=== PATIENT | female | born 1960 | race Hispanic/Latino ===

== ENCOUNTER 2016-11-01 14:00 | Observation (INO) | payer MEDICAID ==
[2016-11-01 14:02] VITALS: BMI 22.3
[2016-11-01] MEDS ORDERED: Levalbuterol 1.25 MG/3 ML Inhal Soln UD IH STA ×2 (14:27→17:19)
[2016-11-01] MEDS ORDERED: Ipratropium 0.02% Inhal Soln (0.5 mg/2.5 ml) UD IH STA (14:27)
[2016-11-01] MEDS ORDERED: guaiFENesin 200 mg/10 ml Syrup UD PO STA ×2 (14:27→18:55)
--- NOTE | 2016-11-01 14:30 | ED PDOC ---
Arrival/HPI - General Chief Complaint: Shortness Of Breath Time Seen by Provider: 11/01/16 14:01 Historian: Patient - History of Present Illness Narrative History of Present Illness (Text): 11/01/16 14:20 A 56 year old female, whose past medical history includes glaucoma and depression, presents to the emergency department complaining of cough and shortness of breath for 5 days. Patient reports experiencing "tightening" cough. She tried visiting her PMD for symptoms few days ago, but he was unavailable at the time. Patient notes experiencing fever at 101, chest tightness, abdominal pain (only associated with cough), and rhinorrhea. Patient denies of any chills, nausea, vomiting, diarrhea, constipation, congestion, urinary output changes, or any other complaints. Also, patient mentions having no history of asthma, CAD, or hypertension. PMD: Dr. Kraus Time/Duration: > week (5 days ago) Symptom Onset: Gradual Symptom Course: Unchanged Past Medical History - Provider Review Nursing Documentation Reviewed: Yes - Tetanus Immunization Tetanus Immunization: Unknown - Cardiac Hx Cardiac Disorders: No - Pulmonary Hx Respiratory Disorders: No - Neurological Hx Neurological Disorder: No - HEENT Hx HEENT Disorder: Yes Hx Cataracts: Yes Hx Glaucoma: Yes - Renal Hx Renal Disorder: No - Endocrine/Metabolic Hx Endocrine Disorders: No - Hematological/Oncological Hx Blood Disorders: No - Integumentary Hx Dermatological Disorder: No - Musculoskeletal/Rheumatological Hx Musculoskeletal Disorders: No - Gastrointestinal Hx Gastrointestinal Disorders: No - Genitourinary/Gynecological Hx Genitourinary Disorders: No - Psychiatric Hx Psychophysiologic Disorder: No Hx Substance Use: No - Surgical History Hx Eye Surgery: Yes (glaucoma/cataract) - Anesthesia Hx Anesthesia: Yes Hx Anesthesia Reactions: No Hx Malignant Hyperthermia: No - Suicidal Assessment Feels Threatened In Home Enviroment: No Family/Social History - Physician Review Nursing Documentation Reviewed: Yes Family/Social History: No Known Family HX Smoking Status: Heavy Smoker > 10 Cigarettes Daily Hx Alcohol Use: No Hx Substance Use: No Allergies/Home Meds Allergies/Adverse Reactions: Allergies No Known Allergies Allergy (Verified 08/04/14 16:12) Review of Systems - Physician Review All systems were reviewed & negative as marked: Yes - Review of Systems Constitutional: Fevers (at 101 degrees). absent: Night Sweats ENT: Rhinorrhea. absent: Sinus Congestion Respiratory: SOB, Cough Cardiovascular: Chest Pain (patient describes chest discomfort as "chest tightness" with cough) Gastrointestinal: Abdominal Pain (associated with cough). absent: Constipation , Diarrhea, Nausea, Vomiting Physical Exam Vital Signs Reviewed: Yes Vital Signs Temp Pulse Resp BP Pulse Ox 11/01/16 20:10 97 11/01/16 18:00 98.4 F 72 18 113/76 97 11/01/16 16:00 98.6 F 68 18 125/65 100 11/01/16 14:13 14 11/01/16 14:09 98 F 85 16 146/85 96 Blood Pressure: Normal Pulse: Regular Respiratory Rate: Normal Appearance: Positive for: Well-Appearing Pain Distress: None Mental Status: Positive for: Alert and Oriented X 3 - Systems Exam Head: Present: Atraumatic, Normocephalic Pupils: Present: PERRL Conjunctiva: Present: Normal Mouth: Present: Moist Mucous Membranes Pharnyx: Present: Normal. No: ERYTHEMA, EXUDATE Neck: Present: Normal Range of Motion Respiratory/Chest: Present: Wheezes (diffused bilateral wheezing) Cardiovascular: Present: Regular Rate and Rhythm, Normal S1, S2. No: Murmurs Abdomen: Present: Normal Bowel Sounds. No: Tenderness, Distention, Peritoneal Signs Back: Present: Normal Inspection Upper Extremity: Present: Normal Inspection. No: Cyanosis, Edema Lower Extremity: Present: Normal Inspection. No: Edema Neurological: Present: GCS=15, CN II-XII Intact, Speech Normal Skin: Present: Warm, Dry, Normal Color. No: Rashes Psychiatric: Present: Alert, Oriented x 3, Normal Insight, Normal Concentration Medical Decision Making ED Course and Treatment: 11/01/16 14:25 Impression: 56 year old female with cough and shortness of breath. Physical exam shows diffused bilateral wheezing. Differential Diagnosis included but are not limited to: Bronchitis vs pneumonia vs URI vs less likely ACS Plan: -- EKG -- Chest X-ray -- Labs -- Robitussin -- Atrovent -- Xopenex -- Solu-Medrol -- Reassess and disposition Prior Visits: Notes and results from previous visits were reviewed. On 08/04/2014 patient came in complaining of dry cough and shortness of breath upon inhalation. Patient was discharged home. Progress Notes: EKG: Ordered, reviewed, and independently interpreted the EKG. Rate : 76 BPM Rhythm : NSR Interpretation : No ST-segment elevations or depressions, no T-wave inversions, normal intervals. Comparison : No previous EKG for comparison. 11/01/2016 15:01 Chest X-ray IMPRESSION: No active disease. Dictator : Nu Wseley V. 11/01/16 20:30 Patient with noted history of cough with wheezing significant on exam - she was given steroids and nebs in the ED with full resolution of wheezing and symptoms as noted. CXR, EKG, and labs were negative - ok for d/c and f/u pmd. - Lab Interpretations Lab Results: 11/01/16 15:00 11/01/16 15:00 Lab Results 11/01/16 15:00: Sodium 140, Potassium 4.5, Chloride 102, Carbon Dioxide 29, Anion Gap 14, BUN 11, Creatinine 0.6, Est GFR ( Amer) > 60, Est GFR (Non- Af Amer) > 60, Random Glucose 101, Calcium 9.4, Magnesium 1.9, Total Bilirubin 0.5, AST 39 H, ALT 58 H, Alkaline Phosphatase 115, Lactate Dehydrogenase 541, Total Creatine Kinase 375 H, CK-MB (CK-2) 1.1, CK-MB (CK-2) % Cancelled, Troponin I < 0.01, NT-Pro-B Natriuret Pep 117, Total Protein 7.3, Albumin 4.3, Globulin 3.0, Albumin/Globulin Ratio 1.4, Lipase 110 11/01/16 15:00: PT 12.4 H, INR 1.15 H, APTT 25.7 11/01/16 15:00: WBC 7.4, RBC 4.20, Hgb 13.2, Hct 37.9, MCV 90.2, MCH 31.4, MCHC 34.8, RDW 13.0, Plt Count 299, MPV 9.4, Gran % 62.0, Lymph % (Auto) 29.4, [place] % (Auto) 6.2 H, Eos % (Auto) 1.9, Baso % (Auto) 0.5, Gran # 4.61, Lymph # 2.2, [place] # 0.5, Eos # 0.1, Baso # 0.04 I have reviewed the lab results: Yes - RAD Interpretation Radiology Orders: 11/01/16 14:26 CHEST PORTABLE [RAD] Stat - Medication Orders Current Medication Orders: Discontinued Medications Guaifenesin (Robitussin) 400 mg PO ONCE STA Stop: 11/01/16 14:28 Last Admin: 11/01/16 15:18 Dose: 400 mg Guaifenesin (Robitussin) 400 mg PO ONCE STA Stop: 11/01/16 18:56 Last Admin: 11/01/16 19:06 Dose: 400 mg Levofloxacin/Dextrose (Levaquin 750mg) 750 mg in 150 mls @ 100 mls/hr IVPB STAT STA Stop: 11/01/16 20:24 Last Admin: 11/01/16 19:24 Dose: 100 mls/hr eMAR Start Stop Document 11/01/16 19:24 AB (Rec: 11/01/16 19:24 AB [id number]) Intravenous Solution Start Date 11/01/16 Start Time 19:24 End Date 11/01/16 Ipratropium Megargel (Atrovent) 0.5 mg IH STAT STA Stop: 11/01/16 14:28 Last Admin: 11/01/16 15:17 Dose: 0.5 mg Levalbuterol HCl (Xopenex) 1.25 mg IH STAT STA Stop: 11/01/16 14:28 Last Admin: 11/01/16 15:18 Dose: 1.25 mg Levalbuterol HCl (Xopenex) 1.25 mg IH STAT STA Stop: 11/01/16 17:20 Last Admin: 11/01/16 17:27 Dose: 1.25 mg Levalbuterol HCl (Xopenex) 0.63 mg IH ONCE STA Stop: 11/01/16 18:56 Last Admin: 11/01/16 19:08 Dose: 0.63 mg Methylprednisolone (Solu-Medrol) 125 mg IVP STAT STA Stop: 11/01/16 14:28 Last Admin: 11/01/16 15:18 Dose: 125 mg IVP Administration Document 11/01/16 15:18 AB (Rec: 11/01/16 15:18 AB [id number]) Charges for Administration # of IVP Administrations 1 ED OBSERVATION Discharge: Yes Date of observation admission: 11/01/16 Time of observation admission: 14:20 - Observation admission statement Patient is being placed in observation because:: Patient with wheezing and sob and will need evaluation and reassessment to treatment. - Goals of Observation Goals of observation are:: To improve symptoms and determine disposition. - Progress Note Progress Note: 11/01/16 15:20 Patient has received nebs and steroids and has persistent wheezing but comfortable appearing. CXR read as negative. 11/01/16 16:00 Patient is comfortable appearing but still with persisent wheezing. 11/01/16 17:15 Patient with persistent wheezing - will give additional neb. Labs and CXR are unremarkable as noted. 11/01/16 18:00 Patient with O2 sat down to 91% on room air and same with ambulation. Wheezing is much improved but still present. 11/01/16 18:50 Still hypoxic without improvement. Will give antibiotic for bronchitis and give more nebs and additional Robitussin. 11/01/16 20:15 Patient is much improved with full resolution of symptoms with O2 sat up to 96% on room air and feels much better. Wheezing has resolved. Ok for d/c. - Scribe Statement The provider has reviewed the documentation as recorded by the Lizeth Goyal Provider Scribe Attestation: All medical record entries made by the Scribe were at my direction and personally dictated by me. I have reviewed the chart and agree that the record accurately reflects my personal performance of the history, physical exam, medical decision making, and the department course for this patient. I have also personally directed, reviewed, and agree with the discharge instructions and disposition. Disposition/Present on Arrival - Present on Arrival Any Indicators Present on Arrival: No History of DVT/PE: No History of Uncontrolled Diabetes: No Urinary Catheter: No History of Decub. Ulcer: No History Surgical Site Infection Following: None - Disposition Have Diagnosis and Disposition been Completed?: Yes Diagnosis: Bronchitis Disposition: HOME/ ROUTINE Disposition Time: 14:20 Patient Plan: Discharge Patient Problems: Current Active Problems Problem Status Onset Bronchitis Acute Condition: GOOD Discharge Instructions (ExitCare): Acute Bronchitis (ED) Additional Instructions: Stop smoking. Take the medications as prescribed. Follow up with Dr. Kraus in 1-2 days. Return to the emergency department if any new concerning symptoms. Prescriptions: Albuterol HFA [Ventolin HFA 90 mcg/actuation (8 g)] 2 puff IH Q4H #1 inhaler Levofloxacin [Levaquin] 1 tab PO DAILY #9 tablet predniSONE [Prednisone] 2 tab PO DAILY #10 tab Referrals: Charlie Kraus MD [Primary Care Provider] - Follow up with primary Forms: [employer] (Occitan)
--- NOTE | 2016-11-01 15:03 | RAD ---
HISTORY: sob COMPARISON: No prior. FINDINGS: LUNGS: No active pulmonary disease. PLEURA: No significant pleural effusion identified, no pneumothorax apparent. CARDIOVASCULAR: Normal. OSSEOUS STRUCTURES: No significant abnormalities. VISUALIZED UPPER ABDOMEN: Normal. OTHER FINDINGS: None. IMPRESSION: No active disease.
[2016-11-01 15:18] LABS: BASO # 0.04 K/mm3 (0.0-2.0); BASO % 0.5 % (0.0-3.0); EOS # 0.1 (0.0-0.7); EOS % 1.9 % (1.5-5.0); GRAN # 4.61 (1.4-6.5); HEMATOCRIT 37.9 % (36.0-48.0); LYMPH # 2.2 (1.2-3.4); LYMPH % 29.4 % (22.0-35.0); MEAN CELL VOLUME 90.2 fl (80.0-105.0); MEAN CORPUSCULAR HEMOGLOBIN 31.4 pg (25.0-35.0); MEAN CORPUSCULAR HGB CONC 34.8 g/dl (31.0-37.0); MEAN PLATELET VOLUME 9.4 fl (7.0-11.0); MONO # 0.5 (0.1-0.6); MONO % 6.2 % (1.0-6.0); WHITE BLOOD COUNT 7.4 10^3/ul (4.5-11.0)
[2016-11-01 15:29] LABS: ALB/GLOB RATIO 1.4 (1.1-1.8); ALKALINE PHOSPHATASE 115 U/L (38-126); ALT/SGPT 58 U/L (7-56); AST/SGOT 39 U/L (14-36); BILIRUBIN,TOTAL 0.5 mg/dL (0.2-1.3); BLOOD UREA NITROGEN 11 mg/dL (7-21); CALCIUM 9.4 mg/dL (8.4-10.5); CARBON DIOXIDE 29 mmol/L (21-33); CHLORIDE 102 mmol/L (98-107); GFR AFRICAN-AMERICAN > 60; GLUCOSE,RANDOM 101 mg/dL (70-110); INR 1.15 (0.93-1.08); LIPASE 110 U/L (23-300); MAGNESIUM 1.9 mg/dL (1.7-2.2); PARTIAL THROMBOPLASTIN TIME 25.7 Seconds (23.7-30.8); POTASSIUM 4.5 mmol/L (3.6-5.0); SODIUM 140 mmol/L (132-148); TOTAL PROTEIN 7.3 g/dL (5.8-8.3)
[2016-11-01 15:43] LABS: TROPONIN I < 0.01 ng/mL
[2016-11-01] MEDS ORDERED: Levalbuterol 0.63 MG/3 ML Inhal Soln UD IH STA (18:55)
[2016-11-01] MEDS ORDERED: levoFLOXacin 750 mg in D5W 750 MG/150 ML BAG IVPB STA (18:55)
[2016-11-01 19:29] VITALS: TEMP 98.4
[2016-11-01 20:41] VITALS: BP 128/72; PULSE 84; RESP 20; O2SAT 96
--- NOTE | 2016-11-01 23:01 | CARD ---
APPROVED REPORT EKG Measurement Heart [id number] <Conclusion> Normal sinus rhythm Normal ECG
== END 2016-11-01 20:45 | disposition home or self-care (01) ==
LOC: ED 14:00 → EROBSV 14:20 → ED 20:40
PROVIDERS: ADMIT Emergency Medicine; ATTEND Emergency Medicine
DX: J40 Bronchitis, not specified as acute or chronic (principal); F17.210 Nicotine dependence, cigarettes, uncomplicated
CPT/HCPCS: 71010; 80053; 82550; 82553; 83615; 83690; 83735; 83880; 84484; 85025; 85610; 85730; 93005; 96374; 99285; G0378; J2930

== ENCOUNTER 2018-01-04 23:11 | Emergency (ER) | payer MEDICAID ==
[2018-01-04 23:16] VITALS: BMI 23.0
[2018-01-04 23:24] VITALS: TEMP 97.9
--- NOTE | 2018-01-04 23:37 | ED PDOC ---
Arrival/HPI - General Time Seen by Provider: 01/04/18 23:20 Historian: Patient - History of Present Illness Narrative History of Present Illness (Text): 01/04/18 23:20 A 57 year old female, whose past medical history includes hyperlipidemia, glaucoma and depression, presents to the emergency department complaining of mid-sternal chest heaviness starting 30 minutes ago. Patient reports 30 minutes ago as she was playing with her dog, she began experiencing the chest heaviness. Since then the symptom has eased, but is still experiencing this issue slightly. She states recently a family member was involved in an MVA and she has been stressed since the event occurred. Also, she is uncertain whether or not she may have pulled a muscle while playing with her dog. Patient denies any shortness of breath, dizziness, nausea, vomiting, or any other complaints at this time. Also, patient mentions she smokes less than one pack daily. Denies any history of hypertension, diabetes, or any family history of CAD. PMD: Dr. Kraus Past Medical History - Provider Review Nursing Documentation Reviewed: Yes - Tetanus Immunization Tetanus Immunization: Unknown - Cardiac Hx Cardiac Disorders: No - Pulmonary Hx Respiratory Disorders: No - Neurological Hx Neurological Disorder: No - HEENT Hx HEENT Disorder: Yes Hx Cataracts: Yes Hx Glaucoma: Yes - Renal Hx Renal Disorder: No - Endocrine/Metabolic Hx Endocrine Disorders: No - Hematological/Oncological Hx Blood Disorders: No - Integumentary Hx Dermatological Disorder: No - Musculoskeletal/Rheumatological Hx Musculoskeletal Disorders: No - Gastrointestinal Hx Gastrointestinal Disorders: No - Genitourinary/Gynecological Hx Genitourinary Disorders: No - Psychiatric Hx Psychophysiologic Disorder: No Hx Substance Use: No - Surgical History Hx Eye Surgery: Yes (glaucoma/cataract) - Anesthesia Hx Anesthesia: Yes Hx Anesthesia Reactions: No Hx Malignant Hyperthermia: No - Suicidal Assessment Feels Threatened In Home Enviroment: No Family/Social History - Physician Review Nursing Documentation Reviewed: Yes Family/Social History: No Known Family HX. denies: CAD/[place] Smoking Status: Heavy Smoker > 10 Cigarettes Daily Hx Alcohol Use: No Hx Substance Use: No Allergies/Home Meds Allergies/Adverse Reactions: Allergies No Known Allergies Allergy (Verified 01/04/18 23:16) Home Medications: Home Meds Medication Instructions Recorded Confirmed Dorzolamide 2%/Timolol 0.5% 1 drop OU DAILY 01/04/18 01/04/18 [Cosopt 2%-0.5% Opht] Paroxetine HCl [Paxil] 10 mg PO DAILY 01/04/18 01/04/18 RX: Simvastatin [Zocor] 20 mg PO DAILY 01/04/18 01/04/18 Review of Systems - Physician Review All systems were reviewed & negative as marked: Yes - Review of Systems Respiratory: absent: SOB Cardiovascular: Other (mid-sternal chest heaviness) Gastrointestinal: absent: Nausea, Vomiting Neurological: absent: Dizziness Physical Exam Vital Signs Reviewed: Yes Vital Signs Temp Pulse Resp BP Pulse Ox 01/04/18 23:21 97.9 F 87 16 150/83 95 Temperature: Afebrile Blood Pressure: Normal Pulse: Regular Respiratory Rate: Normal Appearance: Positive for: Well-Appearing, Non-Toxic, Comfortable Pain Distress: None Mental Status: Positive for: Alert and Oriented X 3 - Systems Exam Head: Present: Atraumatic, Normocephalic Pupils: Present: PERRL Extroacular Muscles: Present: EOMI Conjunctiva: Present: Normal Mouth: Present: Moist Mucous Membranes Neck: Present: Normal Range of Motion Respiratory/Chest: Present: Clear to Auscultation, Good Air Exchange. No: Respiratory Distress, Accessory Muscle Use Cardiovascular: Present: Regular Rate and Rhythm, Normal S1, S2. No: Murmurs Abdomen: No: Tenderness, Distention, Peritoneal Signs Back: Present: Normal Inspection Upper Extremity: Present: Normal Inspection. No: Cyanosis, Edema Lower Extremity: Present: Normal Inspection. No: Edema Neurological: Present: GCS=15, CN II-XII Intact, Speech Normal Skin: Present: Warm, Dry, Normal Color. No: Rashes Psychiatric: Present: Alert, Oriented x 3, Normal Insight, Normal Concentration Medical Decision Making ED Course and Treatment: 01/04/18 23:25 Impression: 57 year old female with some mid-sternal chest heaviness. Plan: -- EKG -- Chest X-ray -- Labs -- Reassess and disposition Prior Visits: Notes and results from previous visits were reviewed. Patient was last seen in the emergency department on 11/01/2016 for cough and shortness of breath. Patient was discharged home. Progress Notes: 01/04/18 23:31 EKG: Ordered, reviewed, and independently interpreted the EKG. Rate : 82 BPM Rhythm : NSR Interpretation : Normal access, normal intervals, no ST elevations. Comparison : No previous EKG for comparison. Patient in no distress throughout ED course. EKG and CXR unremarkable. Troponin negative x2 at 0 and 2 hours. Results discussed with patient, she states that her chest pain subsided and has no new complaints. Would like to go home. Advised outpatient followup, return to the ED for new or worsening symptoms. - RAD Interpretation Radiology Orders: 01/04/18 23:30 CHEST PORTABLE [RAD] Stat - Scribe Statement The provider has reviewed the documentation as recorded by the Lizeth Goyal Provider Scribe Attestation: All medical record entries made by the Scribe were at my direction and personally dictated by me. I have reviewed the chart and agree that the record accurately reflects my personal performance of the history, physical exam, medical decision making, and the department course for this patient. I have also personally directed, reviewed, and agree with the discharge instructions and disposition. Disposition/Present on Arrival - Present on Arrival Any Indicators Present on Arrival: No History of DVT/PE: No History of Uncontrolled Diabetes: No Urinary Catheter: No History Surgical Site Infection Following: None - Disposition Have Diagnosis and Disposition been Completed?: Yes Diagnosis: Chest pain Disposition: HOME/ ROUTINE Disposition Time: 02:29 Condition: STABLE Discharge Instructions (ExitCare): Chest Pain (ED) Additional Instructions: ASHA FLORES, thank you for letting us take care of you today. Your provider was Lisa Armendariz MD and you were treated for SOB. The emergency medical care you received today was directed at your acute symptoms. If you were prescribed any medication, please fill it and take as directed. It may take several days for your symptoms to resolve. Return to the Emergency Department if your symptoms worsen, do not improve, or if you have any other problems. Please contact your doctor or call one of the physicians/clinics you have been referred to that are listed on the Patient Visit Information form that is included in your discharge packet. Bring any paperwork you were given at dis charge with you along with any medications you are taking to your follow up visit. Our treatment cannot replace ongoing medical care by a primary care provider outside of the emergency department. Thank you for allowing the [facility] team to be part of your care today. If you had an X-Ray or CT scan: A Radiologist will review the ED reading if any change in treatment is needed we will contact you. If you had a blood, urine, or wound culture: It will take several days for the results, if any change in treatment is needed we will contact you. If you had an STI test: It will take 48 hours for the results. Please call after 1 week if you have not heard back. Referrals: Charlie Kraus MD [Primary Care Provider] - Follow up with primary Forms: [employer] (Haitian)
[2018-01-04 23:51] LABS: BASO # 0.03 K/mm3 (0.0-2.0); BASO % 0.4 % (0.0-3.0); EOS # 0.2 (0.0-0.7); EOS % 2.3 % (1.5-5.0); GRAN # 3.89 (1.4-6.5); GRAN % 52.6 % (50.0-68.0); HEMOGLOBIN 12.4 g/dL (12.0-16.0); LYMPH # 2.6 (1.2-3.4); LYMPH % 35.6 % (22.0-35.0); MEAN CORPUSCULAR HEMOGLOBIN 30.2 pg (25.0-35.0); MEAN CORPUSCULAR HGB CONC 33.2 g/dl (31.0-37.0); MEAN PLATELET VOLUME 9.8 fl (7.0-11.0); MONO # 0.7 (0.1-0.6); MONO % 9.1 % (1.0-6.0); RBC 4.1 10^6/uL (3.5-6.1); RED CELL DISTRIBUTION WIDTH 13.4 % (11.5-14.5); WHITE BLOOD COUNT 7.4 10^3/uL (4.5-11.0)
[2018-01-05 00:09] LABS: BLOOD UREA NITROGEN 14 mg/dL (7-21); CALCIUM 8.9 mg/dL (8.4-10.5); GFR NON-AFRICAN AMERICAN > 60
[2018-01-05 00:26] LABS: TROPONIN I < 0.01 ng/mL
[2018-01-05 02:46] VITALS: BP 125/77; PULSE 75; RESP 18; O2SAT 98
--- NOTE | 2018-01-05 07:49 | CARD ---
APPROVED REPORT Date of service: 01/04/2018 EKG Measurement Heart [id number] <Conclusion> Normal sinus rhythm Normal ECG No change
--- NOTE | 2018-01-05 11:48 | RAD ---
HISTORY: chest pain COMPARISON: Chest x-ray performed 11/01/16 TECHNIQUE: Chest, one view. FINDINGS: LUNGS: No focal consolidation. Please note that chest x-ray has limited sensitivity for the detection of pulmonary masses. PLEURA: No significant pleural effusion identified. No definite pneumothorax . CARDIOVASCULAR: Heart size appears within normal limits. Atherosclerotic calcification present. OSSEOUS STRUCTURES: Degenerative changes. Osseous demineralization. VISUALIZED UPPER ABDOMEN: Unremarkable. OTHER FINDINGS: None. IMPRESSION: No focal consolidation, significant pleural effusion, or definite pneumothorax identified.
== END 2018-01-05 02:46 | disposition home or self-care (01) ==
LOC: ED 23:11
DX: R07.9 Chest pain, unspecified (principal); E78.5 Hyperlipidemia, unspecified; H40.9 Unspecified glaucoma; F17.210 Nicotine dependence, cigarettes, uncomplicated